=== PATIENT | female | born 2000 | race Caucasian/White ===

== ENCOUNTER → 2022-06-24 09:50 | Outpatient (CLI) | payer BC, SELFPAY ==
--- NOTE | ~2022-06-24 | US_ITS ---
EXAMINATION: US pelvic complete DATE: 06/24/2022 10:08 INDICATION: Right lower quadrant pain TECHNIQUE: Multiple transabdominal and endovaginal sonographic images of the pelvis were obtained. COMPARISON: None. FINDINGS: The uterus measures 7.5 x 3.4 x 4.5 cm. The endometrial complex measures 7 mm. The right ov anita measures 5.9 x 5.2 x 4.5 cm and contains a 4.8 cm simple cyst. The left ovary measures 2.7 x 1.7 x 1.6 cm. There is normal vascular flow in the ovaries. There is no free fluid in the pelvis. IMPRESSION: 1. 4.8 cm right ovarian cyst considered within normal range for a reproductive age female requiring n o sonographic follow-up. Reviewed, dictated and finalized at location L. IMPRESSION: 1. 4.8 cm right ovarian cyst considered within normal range for a reproductive age female requiring no sonographic follow-up.
== END ==
PROVIDERS: PCP Physician Assistant; Visit Provider Physician Assistant
DX: N83.201 Unspecified ovarian cyst, right side (principal); R10.31 Right lower quadrant pain
CPT/HCPCS: 76856